=== PATIENT | female | born 1980 | race Caucasian/White ===

== ENCOUNTER 2019-03-23 03:27 | Emergency (ER) | payer BC ==
[~2019-03-23] VITALS: Ht 162.6 cm; Wt 52.2 kg
[2019-03-23] MEDS ORDERED: RISPERIDONE0.25 MG (03:35)
[2019-03-23] MEDS ORDERED: CLONAZEPAM0.5 MG (03:35)
== END 2019-03-23 14:29 | disposition home or self-care (01) ==
LOC: ER 03:27
DX: K52.89 Other specified noninfective gastroenteritis and colitis (principal); D72.828 Other elevated white blood cell count